=== PATIENT | male | born 1960 | race Caucasian/White ===

== ENCOUNTER 2018-01-07 20:49 | Emergency (ER) | payer OTHER, SELFPAY ==
[2018-01-07 20:59] VITALS: BP 153/95; PULSE 70; RESP 14; TEMP 36.3; O2SAT 96; BMI 27.2
--- NOTE | 2018-01-07 21:02 | DI.RAD.S_ITS ---
PROCEDURE: XR HAND RT MIN 3V INDICATIONS: fall with hand pain TECHNIQUE: 3 views of the hand(s) acquired. COMPARISON: None. FINDINGS: Bones: No fractures. Dislocation of the PIP joint of the little finger with dorsal displacement of the middle phalanx relative to the proximal phalanx. Presumed chronic fracture deformity of the fifth metacarpal. Chronic appearing ossicle projects adjacent to the DIP joint of the little finger. Degenerative spurring at the third MCP joint Soft tissues: No suspicious soft tissue calcifications. IMPRESSION: Dislocation of the PIP joint of the little finger. Dictated by: Kevon Jacome M.D. on 01/07/2018 at 22:03 Approved by: Kevon Jacome M.D. on 01/07/2018 at 22:07
--- NOTE | 2018-01-07 21:02 | DI.CT.S_ITS ---
PROCEDURE: CT HEAD/BRAIN WO CON INDICATIONS: fall with head injury TECHNIQUE: Noncontrast 4.5 mm thick angled axial sections acquired from the foramen magnum to the vertex, with coronal and sagittal reformats. For radiation dose reduction, the following was used: automated exposure control, adjustment of mA and/or kV according to patient size. COMPARISON: None. FINDINGS: Image quality: Excellent. CSF spaces: Basal cisterns are patent. No extra-axial fluid collections. The ventricles are symmetric in size and shape. Brain: No intracranial bleeds or masses. There is cerebral volume loss for age, with resultant ventricular and sulcal prominence. There are periventricular and deep white matter chronic small vessel ischemic changes. There is intracranial internal carotid artery atherosclerosis. Skull and face: Calvarium and visualized facial bones appear intact, without suspicious lesions. Sinuses: Visualized sinuses and mastoids are clear. IMPRESSION: No acute intracranial process. Dictated by: Kevon Jacome M.D. on 01/07/2018 at 21:54 Approved by: Kevon Jacome M.D. on 01/07/2018 at 21:57
--- NOTE | 2018-01-07 21:05 | DI.CT.S_ITS ---
PROCEDURE: CT CERVICAL SPINE WO CON INDICATIONS: fall head injury, intoxicated TECHNIQUE: Noncontrast 3 mm thick sections acquired from the skull base to the T4 level. Sagittal and coronal reformats were then constructed. For radiation dose reduction, the following was used: automated exposure control, adjustment of mA and/or kV according to patient size. COMPARISON: None. FINDINGS: Image quality: Excellent. Bones: No fractures or dislocations. Visualized superior ribs are intact. Mild diffuse cervical disc degeneration and facet arthropathy Soft tissues: Prevertebral soft tissues are normal in thickness. No paravertebral hematomas. No apical pneumothoraces. IMPRESSION: No fracture Dictated by: Kevon Jacome M.D. on 01/07/2018 at 21:57 Approved by: Kevon Jacome M.D. on 01/07/2018 at 22:01
--- NOTE | 2018-01-07 21:05 | DI.RAD.S_ITS ---
PROCEDURE: XR PELVIS 1-2V INDICATIONS: fall with pelvic pain TECHNIQUE: Single view(s) of the pelvis acquired. COMPARISON: None. FINDINGS: Bones: No fractures or dislocations. No suspicious bony lesions. Soft tissues: Visualized bowel gas pattern is normal. No suspicious soft tissue calcifications. IMPRESSION: No fracture Dictated by: Kevon Jacome M.D. on 01/07/2018 at 22:09 Approved by: Kevon Jacome M.D. on 01/07/2018 at 22:11
--- NOTE | 2018-01-07 21:05 | DI.RAD.S_ITS ---
PROCEDURE: XR CHEST 1V INDICATIONS: fall, trauma, preop TECHNIQUE: One view of the chest was acquired. COMPARISON: None. FINDINGS: Surgical changes and devices: None. Lungs and pleura: No pleural effusions or pneumothorax. Lungs are clear. Mediastinum: Mediastinal contours appear normal. Heart size is normal. Bones and chest wall: No suspicious bony lesions. Overlying soft tissues appear unremarkable. Chronic appearing left rib fracture IMPRESSION: No acute disease Dictated by: Kevon Jacome M.D. on 01/07/2018 at 22:07 Approved by: Kevon Jacome M.D. on 01/07/2018 at 22:09
--- NOTE | 2018-01-07 21:11 | ED_ITS ---
HPI - Fall General Chief Complaint: Fall Stated Complaint: GLF w/ head laceration.+ ETOH Time Seen by Provider: 01/07/18 20:52 Source: patient, family and EMS Mode of arrival: EMS Limitations: no limitations History of Present Illness HPI Narrative: 57-year-old nonsmoker daily drinker presents by EMS in [facility] for evaluation of a ground level fall with resultant head injury. He admittedly drinks every day and is unclear about how much he. He fell in the kitchen and probably struck his head on the counter on his way down. He had no loss of consciousness nor nausea or vomiting. He also complains of some neck pain and right hand pain. His hand is worse with motion and improves with rest. He is a bit unclear about his last tetanus but thinks it was within the last 10 years. He denies other chest pain, shortness of breath or other symptoms. He had a very short down time as his significant other was in the other room and heard him fall. MD complaint: fall Onset (ago): minute(s) Fall from: standing Fall witnessed: no Place fall occurred: home Loss of consciousness: none Prolonged down time: no Symptoms prior to fall: none Context: tripped/slipped and alcohol use Location of injury: head Location of injury - extremities: Right: hand Severity: moderate Quality: burning Associated symptoms (after fall): denies Related Data Home Medications Medication Instructions Recorded Confirmed losartan 100 mg PO DAILY 01/07/18 01/07/18 Previous Rx's Medication Instructions Recorded cephalexin [Keflex] 500 mg PO QID 7 Days #28 cap 01/07/18 hydrocodone-acetaminophen 1 tab PO Q4-6H PRN #14 tab 01/07/18 Allergies Allergy/AdvReac Type Severity Reaction Status Date / Time No Known Drug Allergies Allergy Unverified 01/07/18 21:05 Review of Systems Review of Systems All systems reviewed & are unremarkable except as noted in HPI and below Constitutional Denies chills, Denies fever(s), Denies lethargy and Denies weakness Eyes Denies change in vision, Denies eye discharge, Denies irritation and Denies loss of vision ENT Ears, Nose, Mouth, and Throat: Denies change in voice, Denies neck pain and Denies sore throat Cardiovascular Denies chest pain, Denies irregular heart rhythm, Denies lightheadedness, Denies palpitations, Denies dyspnea, Denies dyspnea on exertion and Denies orthopnea Respiratory Denies cough, Denies dyspnea, Denies dyspnea on exertion and Denies wheezing Gastrointestinal Gastrointestinal: Denies abdominal pain, Denies change in bowel habits, Denies diarrhea, Denies nausea and Denies vomiting Genitourinary Denies hematuria, Denies flank pain, Denies urinary incontinence and Denies urinary urgency Musculoskeletal Reports joint swelling, Reports limited range of motion and Denies neck pain Integumentary/Breasts Denies pruritus, Denies erythema, Denies rash and Reports wounds Neurologic Denies confusion, Denies loss of vision and Denies weakness Psychiatric Denies anxiety, Denies confusion, Denies depression, Denies homicidal ideation and Denies suicidal ideation Endocrine Denies palpitations Hematologic/Lymphatic Denies easy bruising Allergic/Immunologic Denies wheezing Exam Narrative Exam Narrative: 57-year-old male, GCS 15, slurring his words and smells of alcohol. C-collar in place Initial Vital Signs Initial Vital Signs: Vital Signs Temperature 97.4 F L 01/07/18 20:59 Pulse Rate 70 01/07/18 20:59 Respiratory Rate 14 01/07/18 20:59 Blood Pressure 153/95 H 01/07/18 20:59 Pulse Oximetry 96 01/07/18 20:59 Const General: cooperative, well developed and in distress Nutritional Appearance: well nourished Orientation: alert, awake, oriented x3 and not confused [facility] Head: other (Superficial laceration on scalp) Ears: external ears normal and TM's normal bilaterally Nose: external nose normal and No nasal discharge Face and sinus: sinuses nontender, face symmetric, no sinus tenderness and No dry mucous membranes Mouth: oral mucosae normal and moist mucous membranes Teeth and gingiva: dentition normal Throat: tonsils normal and uvula midline Eyes General: appearance normal, both eyes and all related structures Eyelids: eyelids normal Conjunctivae: conjunctivae normal Sclera: sclerae normal Pupils: PERRL EOM: EOM intact bilaterally Neck Neck: normal visual inspection, trachea midline, No lymphadenopathy, No midline deformity, tender and No JVD Lymphatic: No lymphedema Chest Chest: normal inspection of the chest Resp Effort & Inspection: normal respiratory effort, able to speak in complete sentences, no respiratory distress and no use of accessory muscles Auscultation: clear to auscultation bilaterally, no rales, no rhonchi and no wheezes Cardio Rate: regular rate Rhythm: regular rhythm Heart Sounds: no click, no gallops, no murmurs and no rubs Pulses: normal peripheral pulses GI Inspection: non-distended Palpation: soft, no hepatosplenomegaly, No guarding, No pulsatile mass and No tender Auscultation: normal bowel sounds Back/Spine/Pelvis Back: No CVA tenderness Cervical Spine: cervical ROM normal and No pain with cervical ROM Thoracic/Lumbar Spine: thoracic and lumbar spine normal to inspection Skin General: no rashes or lesions noted, No jaundice and No petechiae Trauma: no lacerations or abrasions and laceration (3cm on scalp repaired with natty, large, complex deep laceration on palmar surface of R hand) Neuro General: alert, oriented x3, gait normal and no focal motor deficits Speech: speech normal Extrem Right upper extremity: hand (Large deep 6 cm laceration on the palmar surface of right hand. Visualized in a bloodless field and no tendon involvement noted. Furthermore 5th finger obviously dislocated at the) [facility] Social History Smoking Status: Never smoker Procedures Laceration Repair Laceration 1: Site: scalp Side (If applicable): right Size (cm): 3 Description: linear Depth: simple, single layer Local Anesthetic: lidocaine 1% and bupivacaine 0.5% Amount of anesthesia used (mL): 3 Skin layer closed with: other Laceration 2: Side (If applicable): right Size (cm): 6 Description: irregular and clean Depth: involves muscle layer Local Anesthetic: lidocaine 1% and bupivacaine 0.5% Amount of anesthesia used (mL): 6 Pre-repair: wound explored, irrigated extensively and deep structures intact Skin layer closed with: nylon Size (cm): 5-0 Number of sutures: 6 Subcutaneous layer closed with: vicryl Size: 4-0 Number of sutures: 3 Orthopedic Joint Reduction Joint #1: Time Out Performed: No Side: right Joint Reduction Location: finger Technique used: traction/counter-traction Post-reduction neuro exam: intact Post-reduction vascular: intact Post Reduction X-Ray Obtained: No Splint Applied: No Course Orders Ordered: ED Orders 01/07/18 21:02 CT head/brain wo con Stat XR hand RT min 3V Stat 01/07/18 21:05 CT cervical spine wo con Stat XR chest 1V Stat XR pelvis 1-2V Stat 01/07/18 21:48 Complete Blood Count AUTO DIFF Stat Comprehensive Metabolic Panel Stat Ethanol (ETOH) Stat Prothrombin Time INR Stat Discontinued Medications Acetaminophen (Tylenol) 975 mg PO NOW ONE Stop: 01/07/18 21:58 Last Admin: 01/07/18 21:59 Dose: 975 mg Cefazolin Sodium (Keflex) 1 bottle MISC SEEINSTR ONE Stop: 01/07/18 23:31 Last Admin: 01/08/18 00:07 Dose: 2 cap Diphtheria/Tetanus/Acell Pertussis (Adacel) 0.5 ml IM .ONCE ONE Stop: 01/07/18 20:58 Last Admin: 01/07/18 21:59 Dose: 0.5 ml Vital Signs - 8 hr 01/07/18 20:59 01/08/18 00:37 Temperature 97.4 F L Pulse Rate 70 74 Respiratory Rate 14 16 Blood Pressure 153/95 H 113/74 Pulse Oximetry 96 95 MDM - Fall Lab Data Result diagrams: 01/07/18 21:48 01/07/18 21:48 Lab Results 01/07/18 01/07/18 01/07/18 Range/Units 21:48 21:48 21:48 WBC 7.5 (4.5-11.0) X10^3/uL RBC 4.61 (4.5-5.9) X10^6/uL Hgb 15.6 (13.5-17.5) g/dL Hct 44.6 (41-53) % MCV 96.6 (80-100) fL MCH 33.8 (26-34) PG MCHC 35.0 (30-36) % RDW 12.9 (11.6-14.8) % Plt Count 199 (150-400) X10^3/uL Neut % (Auto) 61.5 (50-75) % Lymph % (Auto) 28.4 (25-40) % [place] % (Auto) 6.8 (3-14) % Eos % (Auto) 2.8 (2-4) % Baso % (Auto) 0.5 (0-2) % Neut # (Auto) 4600 (4843-4174) /uL PT 10.3 (10.1-12.7) SECONDS INR 1.0 (0.9-1.3) Sodium (137-145) mmol/L Potassium (3.4-5.1) mmol/L Chloride (98-107) mmol/L Carbon Dioxide (22-32) mmol/L BUN (9-20) mg/dL Creatinine (0.66-1.25) mg/dL Estimated GFR (>60) mL/min BUN/Creatinine Ratio (6-22) Glucose (70-100) mg/dL Calcium (8.4-10.2) mg/dL Total Bilirubin (0.2-1.3) mg/dL AST (17-59) IU/L ALT (21-72) IU/L Alkaline Phosphatase (38-126) U/L Total Protein (6.3-8.2) g/dL Albumin (3.5-5.0) g/dL Globulin (1.7-4.1) g/dL Albumin/Globulin Ratio (1.0-2.8) Ethyl Alcohol 256 mg/dL 01/07/18 Range/Units 21:48 WBC (4.5-11.0) X10^3/uL RBC (4.5-5.9) X10^6/uL Hgb (13.5-17.5) g/dL Hct (41-53) % MCV (80-100) fL MCH (26-34) PG MCHC (30-36) % RDW (11.6-14.8) % Plt Count (150-400) X10^3/uL Neut % (Auto) (50-75) % Lymph % (Auto) (25-40) % [place] % (Auto) (3-14) % Eos % (Auto) (2-4) % Baso % (Auto) (0-2) % Neut # (Auto) (2596-1359) /uL PT (10.1-12.7) SECONDS INR (0.9-1.3) Sodium 145 (137-145) mmol/L Potassium 3.8 (3.4-5.1) mmol/L Chloride 105 (98-107) mmol/L Carbon Dioxide 23 (22-32) mmol/L BUN 20 (9-20) mg/dL Creatinine 1.00 (0.66-1.25) mg/dL Estimated GFR > 60.0 (>60) mL/min BUN/Creatinine Ratio 20.0 (6-22) Glucose 107 H (70-100) mg/dL Calcium 8.9 (8.4-10.2) mg/dL Total Bilirubin 0.3 (0.2-1.3) mg/dL AST 28 (17-59) IU/L ALT 31 (21-72) IU/L Alkaline Phosphatase 74 (38-126) U/L Total Protein 7.2 (6.3-8.2) g/dL Albumin 4.5 (3.5-5.0) g/dL Globulin 2.7 (1.7-4.1) g/dL Albumin/Globulin Ratio 1.7 (1.0-2.8) Ethyl Alcohol mg/dL Imaging Data CT scan - head: Radiologist's impression: [facility] C Spine CT: Radiologist's impression: [facility] Chest x-ray: Radiologist's impression: [facility] Pelvic Xray: Radiologist's impression: [facility] Hand Xray: Radiologist's impression: 5th finger dislocation Discharge Plan Departure Patient Disposition: Home Clinical Impression: Laceration of scalp, Complicated laceration of hand, Dislocation closed, finger Discharge Date/Time: 01/08/18 00:20 Interventions: ED Discharge Assessment Last Done: 01/08/18 00:37 Instructions: Concussion, DI for Laceration Repair -- Complex Activity Restrictions/Additional Instructions: Please keep the wound clean and dry to the best of your ability. Please monitor for signs of infection such as redness to the skin or increasing pain. Have the sutures removed by your doctor in about 7 days. If you are unable to get into your doctor, we would be happy to remove the sutures in that same timeframe. Prescriptions: New hydrocodone-acetaminophen 5-325 mg tablet 1 tab PO Q4-6H PRN (Reason: pain) Qty: 14 RF: 0 cephalexin [Keflex] 500 mg capsule 500 mg PO QID 7 Days Qty: 28 RF: 0 No Action losartan 100 mg PO DAILY RF: 0 Referrals: Bryanna Petersen DO [Non-Staff] -
[2018-01-07 21:55] LABS: Add Manual Diff / Slide Review NO; Basophils Percent Auto 0.5 % (0-2); Eosinophils Percent Auto 2.8 % (2-4); Hematocrit 44.6 % (41-53); Hemoglobin 15.6 g/dL (13.5-17.5); Lymphocytes Percent Auto 28.4 % (25-40); Mean Corpuscular Hemoglobin 33.8 PG (26-34); Mean Corpuscular Volume 96.6 fL (80-100); Monocytes Percent Auto 6.8 % (3-14); Neutrophils Absolute Auto 4600 /uL (3000-5900); Neutrophils Percent Auto 61.5 % (50-75); Platelet Count 199 X10^3/uL (150-400); Red Blood Cell Count 4.61 X10^6/uL (4.5-5.9); Red Cell Distribution Width 12.9 % (11.6-14.8); White Blood Cell Count 7.5 X10^3/uL (4.5-11.0)
[2018-01-07] MEDS: ACETAMINOPHEN 325 MG TABLET 975 MG PO (21:59)
[2018-01-07] MEDS: TET,DIPH,PERTUSS(ACELL),VAC/PF 0.5 ML SYRINGE IM (21:59)
[2018-01-07 22:00] LABS: Prothrombin Time 10.3 SECONDS (10.1-12.7)
[2018-01-07 22:06] LABS: Ethanol (ETOH) 256 mg/dL
[2018-01-07 22:08] LABS: Alanine Aminotransferase 31 IU/L (21-72); Albumin 4.5 g/dL (3.5-5.0); Albumin Globulin Ratio 1.7 (1.0-2.8); Alkaline Phosphatase 74 U/L (38-126); Aspartate Aminotransferase 28 IU/L (17-59); Bilirubin Total 0.3 mg/dL (0.2-1.3); Blood Urea Nitrogen 20 mg/dL (9-20); Calcium 8.9 mg/dL (8.4-10.2); Carbon Dioxide 23 mmol/L (22-32); Chloride 105 mmol/L (98-107); Estimated Glomerular Filt Rate > 60.0 mL/min (>60); Globulin 2.7 g/dL (1.7-4.1); Glucose 107 mg/dL (70-100); HEMOLYSIS < 15 (0-50); Potassium 3.8 mmol/L (3.4-5.1); Sodium 145 mmol/L (137-145); Total Protein 7.2 g/dL (6.3-8.2)
[2018-01-08] MEDS: cephALEXin 250 MG PREPACK 1 BOTTLE MISC (00:07)
[2018-01-08 00:37] VITALS: BP 113/74; PULSE 74; RESP 16; O2SAT 95
== END 2018-01-08 00:20 | disposition home or self-care (01) ==
PROVIDERS: Emergency Provider Emergency Medicine
DX: S01.01XA Laceration without foreign body of scalp, initial encounter (principal); S61.411A Laceration without foreign body of right hand, initial encounter; S63.257A Unspecified dislocation of left little finger, initial encounter; W19.XXXA Unspecified fall, initial encounter
CPT/HCPCS: 12002; 12004; 26700; 70450; 71045; 72125; 72170; 73130; 80053; 80320; 85025; 85610; 90471; 99283; 99284; 90715

== ENCOUNTER → 2022-08-17 18:20 | Outpatient (CLI) | payer OTHER, SELFPAY ==
--- NOTE | 2022-08-17 | DI.MRI.S_ITS ---
PROCEDURE: MR WRIST RT WO CON INDICATIONS: ARTHRITIS RT WRIST/DE QUERVAINS TENOSYNOVITIS TECHNIQUE: Noncontrast coronal proton density fast spin echo and T2 fast spin echo with fat saturation; coronal 3-D gradient echo, axial T1 spin echo and T2 fast spin echo with fat saturation, sagittal T1 spin echo through the wrist. COMPARISON: [facility], CR, XR WRIST 3+ VIEWS RIGHT, 03/12/2022, 6:52. FINDINGS: Image quality: Excellent. Bones and cartilage: The carpal bones are normally aligned. No bone marrow contusions or fractures. No evidence for avascular necrosis. Mild chronic bowing deformity of the 5th metacarpal with cortical and trabecular remodeling may be related to prior trauma, fibrous dysplasia, or possibly remote Paget disease. No increased T2-weighted signal is seen. Full-thickness cartilage loss is seen at the radiolunate articulation with subchondral sclerosis, subchondral cystic changes and edema. A type 2 lunate is seen with mild degenerative changes at the hamatolunate articulation. There is neutral ulnar variance. Partial-thickness cartilage loss is seen at the radio scaphoid articulation. There are [id number] degenerative changes at the 1st carpometacarpal joint and triscaphe joint. Carpal ligaments: The scapholunate and lunotriquetral ligaments appear intact. On sagittal images, the pisohamate ligament appears intact. Triangular fibrocartilage complex: A large full-thickness defect is seen within the central triangular fibrocartilage disc, which may be degenerative. Small distal radioulnar joint effusion. Tendons and soft tissues: The carpal tunnel structures appear normal, including the median nerve. The ulnar nerve appears normal within Guyon's canal. Mild tendinosis of the abductor pollicis longus and extensor pollicis brevis tendons in the 1st extensor compartment. There is suspected chronic partial intrasubstance tearing of the extensor carpi ulnaris tendon at the level of the ulnar styloid superimposed on chronic tendinosis and mild tenosynovitis. No tendon subluxation is seen. A lobular ganglion cyst is seen at the volar radial aspect of the radiocarpal joint measuring up to 8 x 7 x 11 mm. IMPRESSION: 1. 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 2. Mild tendinosis of the abductor pollicis longus and extensor pollicis brevis tendons in the 1st extensor compartment. 3. Full-thickness defect within the central triangular fibrocartilage disc, which may be degenerative. 4. Full-thickness cartilage loss at the radiolunate articulation with subchondral cystic changes and subchondral sclerosis. Drwc-lz-bzfzigya degenerative changes are seen at the radioscaphoid, triscaphe, and 1st carpometacarpal joints. Approved by: Kwasi Pat M.D. on 08/18/2022 at 12:27
== END ==
PROVIDERS: Referring Provider Orthopaedic Surgery; Visit Provider Orthopaedic Surgery
DX: M19.031 Primary osteoarthritis, right wrist (principal); M65.4 Radial styloid tenosynovitis [de Quervain]; M77.8 Other enthesopathies, not elsewhere classified; S66.811A Strain of other specified muscles, fascia and tendons at wrist and hand level, right hand, initial encounter
CPT/HCPCS: 73221

== ENCOUNTER 2023-02-14 09:55 | Emergency (ER) | payer OTHER, SELFPAY ==
[2023-02-14 10:02] VITALS: BP 142/75; PULSE 99; RESP 16; TEMP 36.9; O2SAT 97; BMI 26.5
--- NOTE | 2023-02-14 10:06 | DI.RAD.S_ITS ---
PROCEDURE: XR SHOULDER RT MIN 2V INDICATIONS: fall while bowling TECHNIQUE: 3 views of the shoulder were acquired. COMPARISON: None. FINDINGS: Bones: No fractures or dislocations. No suspicious bony lesions. Visualized ribs appear intact. Soft tissues: No suspicious soft tissue calcifications. IMPRESSION: No displaced fracture. No pneumothorax. Dictated by: Roverot Fernández M.D. on 02/14/2023 at 9:17 Approved by: Roverto Fernández M.D. on 02/14/2023 at 9:20
--- NOTE | 2023-02-14 10:36 | ED_ITS ---
HPI - Fall General Chief Complaint: Fall Stated Complaint: fall, rt shoulder pain Time Seen by Provider: 02/14/23 10:36 Source: patient Mode of arrival: Ambulatory Limitations: no limitations History of Present Illness HPI Narrative: Patient is a 62-year-old male who yesterday was bowling. He states that he was walking and did not notice a small step when going back to his seat. He states he fell landing on his right shoulder. Did not hit his head. No loss of consciousness. No other injuries except for his right shoulder. Did take some Tylenol and ibuprofen. Has discomfort with movement of the right shoulder. No elbow pain. No wrist pain. Related Data Home Medications Medication Instructions Recorded Confirmed losartan 100 mg PO DAILY 01/07/18 01/07/18 Previous Rx's Medication Instructions Recorded hydrocodone 5 mg-acetaminophen 325 1 tab PO Q4-6H PRN pain #14 tabs 01/07/18 mg tablet hydrocodone 5 mg-acetaminophen 325 1 tab PO Q4-6H PRN pain #10 tabs 02/14/23 mg tablet Allergies Allergy/AdvReac Type Severity Reaction Status Date / Time No Known Drug Allergies Allergy Unverified 01/07/18 21:05 Review of Systems Constitutional Constitutional: Reports system reviewed and no additional complaints, except as documented Musculoskeletal Musculoskeletal: Reports system reviewed and no additional complaints, except as documented Integumentary/Breasts Skin/Breast: Reports system reviewed and no additional complaints, except as documented Neurologic Neurologic: Reports system reviewed and no additional complaints, except as documented Patient History Social History Smoking Status: Never smoker Smoking Status: Never smoker alcohol intake frequency: 3 or more drinks per day Substance Use Type: does not use Exam Initial Vital Signs Initial Vital Signs: Vital Signs Temperature 98.4 F 02/14/23 10:02 Pulse Rate 99 H 02/14/23 10:02 Respiratory Rate 16 02/14/23 10:02 Blood Pressure 142/75 H 02/14/23 10:02 Pulse Oximetry 97 02/14/23 10:02 Oxygen Delivery Method Room Air 02/14/23 10:02 Back/Spine/Pelvis Cervical Spine: No cervical spinal tenderness Neuro General: patient alert and patient awake Sensory Exam: no sensory deficits noted Extrem Other: Right wrist and right elbow unremarkable. Patient has minimal discomfort with palpation of the right shoulder but has quite a bit of discomfort with either abduction or forward flexion. He is no tenderness over the AC joint. No tenderness on the scapular region. Course Orders Ordered: ED Orders 02/14/23 10:06 XR shoulder RT min 2V Stat Vital Signs Vital signs: Vital Signs - 8 hr 02/14/23 10:02 Temperature 98.4 F Pulse Rate 99 H Respiratory Rate 16 Blood Pressure 142/75 H Pulse Oximetry 97 Oxygen Delivery Method Room Air MDM - Fall Imaging Data Extremity x-ray #1: Radiologist's Impression: PROCEDURE: XR SHOULDER RT MIN 2V INDICATIONS: fall while bowling TECHNIQUE: 3 views of the shoulder were acquired. COMPARISON: None. FINDINGS: Bones: No fractures or dislocations. No suspicious bony lesions. Visualized ribs appear intact. Soft tissues: No suspicious soft tissue calcifications. IMPRESSION: No displaced fracture. No pneumothorax. [facility] Narrative Medical decision making narrative: Neurovascularly intact. No fractures or dislocations noted on the x-rays. I suspect that there maybe a soft tissue injury. Potentially even ligament a rotator cuff or labrum. No indication for MRI here in the ER. Will discharge home with symptom treatment and conservative home physical therapy. Will have him contact his primary doctor for follow-up. Discharge Plan Departure Patient Disposition: Home Clinical Impression: Injury of shoulder, right Instructions: How To Perform RICE (Rest, Ice, Compress, Elevate) Activity Restrictions/Additional Instructions: I do recommend that you continue with the Tylenol/ibuprofen. Also continue with the conservative treatments that we talked about at home. Contact your primary doctor for follow-up as you may need referral to see physical therapy or even advanced imaging such as an MRI. Return to the emergency department for new symptoms. Prescriptions: New hydrocodone-acetaminophen 5-325 mg tablet 1 tab PO Q4-6H PRN (Reason: pain) Qty: 10 0RF No Action losartan 100 mg PO DAILY hydrocodone-acetaminophen 5-325 mg tablet 1 tab PO Q4-6H PRN (Reason: pain) Qty: 14 0RF Referrals: Miscellaneous,DoctorMD [Primary Care Provider] - Stand Alone Forms: Patient Portal/API
[2023-02-14 11:05] VITALS: BP 118/74; PULSE 99; RESP 14; O2SAT 97
== END 2023-02-14 11:05 | disposition home or self-care (01) ==
PROVIDERS: Emergency Provider Emergency Medicine
DX: S49.91XA Unspecified injury of right shoulder and upper arm, initial encounter (principal); W01.0XXA Fall on same level from slipping, tripping and stumbling without subsequent striking against object, initial encounter; Y93.54 Activity, bowling; Y92.39 Other specified sports and athletic area as the place of occurrence of the external cause
CPT/HCPCS: 73030; 99283